=== PATIENT | male | born 1975 | race Caucasian/White ===

== ENCOUNTER 2020-02-22 13:58 | Emergency (ER) | payer BC ==
[~2020-02-22] VITALS: Ht 175.3 cm; Wt 77.1 kg
[~2020-02-22 13:58] MED LIST: NORCO 5-325 TA1 EACH PO; PRILOSEC 20 MG20 MG
[2020-02-22] MEDS ORDERED: TYLENOL COLD &1 EACH PO (14:09)
[2020-02-22] MEDS ORDERED: FEXOFENADINE-P1 EACH PO (14:09)
[2020-02-22] MEDS ORDERED: PROAIR HFA8.5 GM INH (15:19)
[2020-02-22 15:32] VITALS: BP 136/88
== END 2020-02-22 15:32 | disposition home or self-care (01) ==
LOC: M.ERS 13:58
DX: U07.1 COVID-19 (principal); J22 Unspecified acute lower respiratory infection; K21.9 Gastro-esophageal reflux disease without esophagitis